=== PATIENT | female | born 1965 | race Caucasian/White ===

== ENCOUNTER 2020-03-06 06:36 | Inpatient (IN) ==
--- NOTE | 2020-02-29 10:20 | PAT Medication Instructions ---
Medication Instructions Date of Service February 29, 2020 Home Medications bupropion HCl [Wellbutrin SR] 200 mg PO QAM citalopram 20 mg PO HS dicyclomine 20 mg PO TID PRN fluticasone propionate [Flonase] 2 spray INTRANASAL DAILY PRN lisinopril 20 mg PO HS loratadine [Claritin] 10 mg PO QAM meloxicam 15 mg PO QAM multivitamin 1 tab PO QAM omeprazole [Prilosec] 20 mg PO Q2D Continue as directed omeprazole [Prilosec] 20 mg PO Q2D ASK your surgeon for instructions meloxicam 15 mg PO QAM DO NOT take the morning of surgery dicyclomine 20 mg PO TID PRN loratadine [Claritin] 10 mg PO QAM multivitamin 1 tab PO QAM Take morning of surgery With a small sip of water, OTHERWISE NOTHING TO EAT OR DRINK AFTER MIDNIGHT: bupropion HCl [Wellbutrin SR] 200 mg PO QAM fluticasone propionate [Flonase] 2 spray INTRANASAL DAILY PRN (if needed) Take evening before surgery citalopram 20 mg PO HS dicyclomine 20 mg PO TID PRN (if needed) fluticasone propionate [Flonase] 2 spray INTRANASAL DAILY PRN (if needed) lisinopril 20 mg PO HS Other Notes If you have any questions please call us at [phone] or [phone] or [phone] or [phone]
--- NOTE | 2020-03-01 10:57 | Anesthesiology Consultation ---
Date of Service March 01, 2020 Assessment & Plan (1) Encounter for pre-operative examination: Chart Review Chart Review: Acceptable Risk for Surgery (pending preop Covid testing ) and Patient seen in Pre Admission Testing - Check test AM DOS Per PAT appt on 03/01/20, pt resides and works in [facility]. No recent travel in past two weeks. No known Covid positive contacts or Covid related symptoms. Pt had Covid testing done 03/01/20 at surgeon's office- results pending. Educated on importance of self quarantining, social distancing and wearing mask in public both for the patient and household contacts. Teaching & Discussion Pre-Anesthesia Teaching/Discussion Notes: Instructed NPO after midnight before surgery,except medications with 15 cc of water. Medication instructions provided according to the [facility] guidelines. History Surgery Operation Date: 03/06/20 08:25 Proposed Procedures p Right Total Knee Arthroplasty - Fer Lindquist, Height/Weight Height: 5 ft 5 in Weight: 117.2 kg Allergies Allergy/AdvReac Type Severity Reaction Status Date / Time meperidine [From Demerol] AdvReac Unknown NAUSEA Verified 02/23/20 08:06 VOMITING Medications Home Medications Medication Instructions Recorded Confirmed Last Taken bupropion HCl [Wellbutrin SR] 200 mg PO QAM 02/23/20 02/23/20 Unknown citalopram 20 mg PO HS 02/23/20 02/23/20 Unknown dicyclomine 20 mg PO TID PRN 02/23/20 02/23/20 Unknown fluticasone propionate [Flonase] 2 spray INTRANASAL DAILY PRN 02/23/20 02/23/20 Unknown lisinopril 20 mg PO HS 02/23/20 02/23/20 Unknown loratadine [Claritin] 10 mg PO QAM 02/23/20 02/23/20 Unknown meloxicam 15 mg PO QAM 02/23/20 02/23/20 Unknown multivitamin 1 tab PO QAM 02/23/20 02/23/20 Unknown omeprazole [Prilosec] 20 mg PO Q2D 02/23/20 02/23/20 Unknown Past Medical History Medical History (Updated 03/01/20 @ 11:08 by Fallon Hayden PA-C) Anxiety Depression GERD (gastroesophageal reflux disease) Well controlled and stable Hypertension IBS (irritable bowel syndrome) Stable at this time Osteoarthritis Exercise / Class Metabolic Activity II 4-5 Yardwork/Stairs/Walk up hill (one flight of stairs- no chest pain or SOB) Past Surgical History Surgical History (Updated 02/23/20 @ 08:27 by Citlalli Huang RN) Exploratory laparotomy scar OVARIAN CYSTS H/O bilateral breast reduction surgery History of cholecystectomy History of colonoscopy History of esophagogastroduodenoscopy (EGD) History of tonsillectomy Hx of laparoscopy OVARIAN CYSTS Past Anesthesia History No Hx of Anesthesia Complications and No Family Hx of Anesthesia Complications History of PONV No Hx of PONV and No Hx of Motion Sickness Social History Smoking Status: Never smoker Do You Dip or Chew Tobacco: No Hx Alcohol Use: Yes Alcohol type: hard liquor alcohol intake frequency: holidays/special occasions only Hx Substance Use: No Review of Systems Patient denies chest pain, shortness of breath, dyspnea on exertion, cough, wheezing, palpitations. No hx of seizures, stroke, MT, apnea/snoring. No hx of blood clots or blood transfusions Physical Exam Vital Signs VITALS BP 143/81 P 79 TEMP 98.3 SP02 96% RESP 16 Constitutional no acute distress ENMT Mouth: no TMJ clicking Thyromental Distance: > or= 3.5 Finger Breadths (3.5) Mallampati Class: I Denies loose or missing teeth Neck neck extension not limited Respiratory normal respiratory effort; no respiratory distress Auscultation: lungs clear to auscultation bilaterally; no wheezes Cardiovascular Rate/Rhythm: regular rate and regular rhythm Heart Sounds: no murmur Vessels: no carotid bruit Musculoskeletal Spine: no pain with cervical ROM Neurologic moves all extremities Psychiatric Orientation: alert Testing Laboratory Results 03/01/20 11:20 PT 10.4 Seconds (9.0-12.0) 03/01/20 11:20 INR 1.0 (0.9-1.1) 03/01/20 11:20 APTT 28.7 Seconds (21.0-31.0) 03/01/20 11:20 Hemoglobin A1c 5.7 % (4.5-5.6) H 03/01/20 11:20 Urine Color Yellow 03/01/20 Unknown Urine Appearance Clear (Clear) 03/01/20 Unknown Urine pH 6.5 (4.5-7.5) 03/01/20 Unknown Ur Specific [place] 1.025 (1.000-1.030) 03/01/20 Unknown Urine Protein Negative (Negative) 03/01/20 Unknown Urine Glucose (UA) Negative (Negative) 03/01/20 Unknown Urine Ketones Negative (Negative) 03/01/20 Unknown Urine Nitrite Negative (Negative) 03/01/20 Unknown Ur Leukocyte Esterase Negative (Negative) 03/01/20 Unknown Blood Type B Positive 03/01/20 11:20 Antibody Screen NEGATIVE 03/01/20 11:20 02/18/20= SODIUM: 139 POTASSIUM: 4.1 CHLORIDE: 107 CO2: 28 BUN: 19 CREATININE: 0.74 GLUCOSE: 95 Electrocardiogram Date: 03/01/20 Findings: + NSR @ (74) Chest X-Ray Date: 03/01/20 Findings: + NAD
--- NOTE | 2020-03-01 11:45 | XRay Report ---
XR chest Pre-admission PA/Lat CLINICAL HISTORY: Preoperative chest COMPARISON STUDY: No previous studies for comparison. FINDINGS: The cardiac and mediastinal contours are normal. There is no evidence of focal pulmonary co nsolidation. There is no evidence of failure. No pleural effusions are visualized.[ IMPRESSION: No active disease in the chest. ACT 112: Negative or not required by law. Electronically signed by: Toño Villanueva M.D. 03/01/2020 11:44 AM
[2020-03-01 12:20] LABS: Appearance Urine Clear (Clear); Bilirubin Urine Negative (Negative); Blood Urine Negative (Negative); Color Urine Yellow; Glucose Urine UA Negative (Negative); Ketones Urine Negative (Negative); Leukocyte Esterase Urine Negative (Negative); Nitrite Urine Negative (Negative); Protein Urine Negative (Negative); Specific Gravity Urine 1.025 (1.000-1.030); Urobilinogen Urine Negative (Negative); pH Urine 6.5 (4.5-7.5)
[2020-03-01 12:20] LABS: Basophils # (auto) 0.02 K/uL (0-0.2); Basophils % (auto) 0.2 %; Eosinophils # (auto) 0.16 K/uL (0-0.5); Eosinophils % (auto) 1.7 %; Hematocrit (blood only) 43.2 % (37-47); Hemoglobin 14.3 g/dL (12.0-16.0); Immature Granulocytes # (auto) 0.03 K/uL (0.00-0.02); Immature Granulocytes % (auto) 0.3 %; Lymphocytes # (auto) 1.74 K/uL (1.2-3.4); Lymphocytes % (auto) 18.8 %; Mean Corpuscular Hemoglobin 30.6 pg (25-34); Mean Corpuscular Hgb Conc 33.1 g/dL (32-36); Mean Corpuscular Volume 92.3 fL (80-100); Mean Platelet Volume 11.2 fL (7.4-10.4); Monocytes % (auto) 6.5 %; Neutrophils # (auto) 6.71 K/uL (1.4-6.5); Neutrophils % (auto) 72.5 %; Platelet Count 260 K/uL (130-400); RDW Coefficient of Variation 14.1 % (11.5-14.5); RDW Standard Deviation 47.7 fL (36.4-46.3); Red Blood Count 4.68 M/uL (4.2-5.4); White Blood Count 9.26 K/uL (4.8-10.8)
[2020-03-01 12:28] LABS: Estimated Average Glucose 117 mg/dl; Hemoglobin A1C 5.7 % (4.5-5.6)
[2020-03-01 12:30] LABS: Partial Thromboplastin Time 28.7 Seconds (21.0-31.0); Prothrombin Time 10.4 Seconds (9.0-12.0)
--- NOTE | 2020-03-01 13:51 | Electrocardiogram Report ---
Test Reason : Blood Pressure : / mmHG Vent. Rate : 074 BPM Atrial Rate : 074 BPM P-R Int : 156 ms QRS Dur : 098 ms QT Int : 394 ms P-R-T Axes : 037 070 043 degrees QTc Int : 437 ms Normal sinus rhythm Normal ECG No previous ECGs available Confirmed by Omar Watkins ([id number]) on 03/01/2020 1:50:53 PM Referred By: Fer Lindquist Confirmed By:Omar Watkins
--- NOTE | 2020-03-04 12:13 | History & Physical Report ---
Date of Service March 06, 2020 Assessment & Plan (1) Degenerative joint disease of knee, right: I have indicated the patient for right total knee replacement. The risks, benefits and complications of surgery were explained to the patient which include but not limited to infection, acute blood loss, DVT/PE, injury to nerves, vessels, bone, soft tissue, arthrofibrosis, chronic pain, failure of the prosthesis, knee dislocation, leg length discrepancy, need for additional surgery, cardiac and pulmonary events and . The patient wished to proceed with surgery and informed consent was obtained at this time. We will plan for ASA BID post-operatively for DVT prophylaxis. Upon discharge the patient will be discharged home with home health services. Appropriate clearances by PCP were obtained. (2) Obesity: In additional to negative effects on overall health, the patient understands that due to their underlying obesity, they are at increased risk for developing the complications listed above. History of Present Illness Chief Complaint: Right knee pain/djd Primary Care Provider: Rich Joy DO The patient is a 54 year old female who presents with complaints of severe rig ht knee pain and DJD. The patient has failed outpatient conservative treatments to this point which included NSAIDs, bracing, IA corticosteroid and COELLO injections, PT and home exercise/walking program. The patient's pain and limited function have progressed to the point where they severely hinder their activities of daily living and they no longer tolerate exercise programs. They are requesting to proceed with total knee replacement surgery. Allergies Allergy/AdvReac Type Severity Reaction Status Date / Time meperidine [From Demerol] AdvReac Unknown NAUSEA Verified 03/06/20 06:56 VOMITING Home Medications Home Medications Medication Instructions Recorded Confirmed Type bupropion HCl [Wellbutrin SR] 200 mg PO QAM 02/23/20 03/06/20 History citalopram 20 mg PO HS 02/23/20 03/06/20 History dicyclomine 20 mg PO TID PRN 02/23/20 03/06/20 History fluticasone propionate [Flonase] 2 spray INTRANASAL DAILY PRN 02/23/20 03/06/20 History lisinopril 20 mg PO HS 02/23/20 03/06/20 History loratadine [Claritin] 10 mg PO QAM 02/23/20 03/06/20 History meloxicam 15 mg PO QAM 02/23/20 03/06/20 History multivitamin 1 tab PO QAM 02/23/20 03/06/20 History omeprazole [Prilosec] 20 mg PO Q2D 02/23/20 03/06/20 History Past Med/Surg History Medical History Anxiety Depression GERD (gastroesophageal reflux disease) Well controlled and stable Hypertension IBS (irritable bowel syndrome) Stable at this time Osteoarthritis Surgical History Exploratory laparotomy scar OVARIAN CYSTS H/O bilateral breast reduction surgery History of cholecystectomy History of colonoscopy History of esophagogastroduodenoscopy (EGD) History of tonsillectomy Hx of laparoscopy OVARIAN CYSTS Social History Smoking Status: Never smoker Second Hand Exposure: Yes (MOTHER SMOKED); Do You Dip or Chew Tobacco: No; Hx Alcohol Use: Yes Alcohol type: hard liquor Hx Substance Use: No Preferred Language: American Communication Ability: Effective Sports Physical Therapist Required: No Beliefs That Will Affect Care: None Current Living Situation: Spouse Other Information That Helps Us Care for You: No Feels Safe at Home: Yes Safety Concerns: Feels Safe At This Time Review of Systems Review of Systems: All systems reviewed & are unremarkable except as noted in HPI & below Constitutional: as per Subjective / HPI Physical Exam Physical Exam: RLE NVSI +EHL/FHL/TA/GS SILT grossly, +2 DP pulse, compartments soft NT, limited painful ROM 0-115 degrees of flexion, +crepitus. Constitutional: WD/WN, vitals as above Eyes: PERRL, conjunctivae normal, anicteric sclerae ENMT: external ear and nose normal, oropharynx normal Neck: trachea midline, no thyromegaly Respiratory: normal respiratory effort, lungs clear to auscultation Cardiovascular: RRR, no murmur, no edema Gastrointestinal (Abdomen): normal bowel sounds, soft, nontender, no hepatosplenomegaly Musculoskeletal: no cyanosis or clubbing, extremities motor strength 5/5 Skin: no rashes, warm and dry Neurologic: patellar DTR's 2+ bilat, sensation intact Psychiatric: A+Ox3, euthymic affect Lymphatic: no cervical or axillary lymphadenopathy Results & Data Results & Data ([facility]) Diagnostic Findings Multiple views of the knee demonstrates severe multi-compartmental DJD with complete loss of the medial joint space. +osteophytes, +sclerosis, +subchondral cysts. Pre Admission Testing Addendum Laboratory Results 03/01/20 11:20 PT 10.4 Seconds (9.0-12.0) 03/01/20 11:20 INR 1.0 (0.9-1.1) 03/01/20 11:20 APTT 28.7 Seconds (21.0-31.0) 03/01/20 11:20 Hemoglobin A1c 5.7 % (4.5-5.6) H 03/01/20 11:20 Urine Color Yellow 03/01/20 Unknown Urine Appearance Clear (Clear) 03/01/20 Unknown Urine pH 6.5 (4.5-7.5) 03/01/20 Unknown Ur Specific [place] 1.025 (1.000-1.030) 03/01/20 Unknown Urine Protein Negative (Negative) 03/01/20 Unknown Urine Glucose (UA) Negative (Negative) 03/01/20 Unknown Urine Ketones Negative (Negative) 03/01/20 Unknown Urine Nitrite Negative (Negative) 03/01/20 Unknown Ur Leukocyte Esterase Negative (Negative) 03/01/20 Unknown Blood Type B Positive 03/01/20 11:20 Antibody Screen NEGATIVE 03/01/20 11:20
[~2020-03-06 06:36] MED LIST: ACETAMINOPHEN 500 MG TAB PO SCH; BUPIVACAINE 0.5 % 5 MG/1 ML PF 10ML VIAL ONE; CEFAZOLIN 2000MG 2,000 MG/15 ML SYR IV SCH; CeleBREX 200 MG CAP PO SCH; EPINEPHrine INJ 1 MG/ML AMP ONE; FAMOTIDINE 20 MG TAB PO SCH; GABAPENTIN 900 MG DOSE PO SCH; LR 500ML BOLUS, THEN 15ML/HR IV SCH; METOCLOPRAMIDE HCL 10 MG TABLET PO SCH; ROPIVACAINE 0.5% 5 MG/ML 30 ML VIAL ONE; ROPIVACAINE 0.5% HCL/PF 150 MG, BUPIVACAINE 0.5% MPF 30 ML, EPINEPHrine 30MG/30ML (OR U... INSTIL SCH; TRANEXAMIC ACID 1,000 MG **IV Intra-op IV SCH; TRANEXAMIC ACID 1,000 MG **IV Pre-op IV SCH; dexAMETHasone 4 MG TAB PO SCH
[2020-03-06] MEDS ORDERED: fentaNYL citrate 100 MCG/2 ML VIAL ONE (07:27)
[2020-03-06] MEDS ORDERED: MIDAZOLAM HCL 1 MG/ML 2ML VIAL ONE ×2 (07:27→08:54)
--- NOTE | 2020-03-06 08:17 | History & Physical Bridge Note ---
Date of Service March 06, 2020 History & Physical Bridge Note I have examined the patient, reviewed the History & Physical and in the interval since the performance of the History & Physical I have noted the following changes of clinical significance: no changes noted
[2020-03-06] MEDS ORDERED: ORTHO JOINT ANESTHETIC ONE (08:19)
[2020-03-06] MEDS ORDERED: BACITRACIN INJ 50,000 UNIT VIAL ONE (08:19)
[2020-03-06] MEDS ORDERED: PROPOFOL IV EMULSION 10 MG/ML 20 ML VIAL IV ONE ×3 (09:41→09:42)
[2020-03-06] MEDS ORDERED: LIDOCAINE HCL 2% 2 ML VIAL/AMP(20MG/ML) INFIL ONE (09:41)
[2020-03-06] MEDS ORDERED: ONDANSETRON INJ 2 MG/ML 2 ML VIAL ONE (09:43)
--- NOTE | 2020-03-06 10:27 | Post Operative Brief Note ---
Immediate Post Op Note v1 Date of Surgery March 06, 2020 Pre & Post Diagnosis Operation Date: 03/06/20 08:30 Pre-Op Diagnosis: Unilateral Primary Osteroarthritis, Right Knee Post-Op Diagnosis: Unilateral Primary Osteroarthritis, Right Knee I identified the patient and participated in the time-out.: Yes Procedure Operation Date: 03/06/20 08:30 Actual Procedures p Right Total Knee Arthroplasty(Right) - Fer Lindquist DO Surgeon Fer Lindquist DO Government Employee Kj Mandel Estimated Blood Loss 55 Findings Consistent with Post-Op Diagnosis Fluids 1000 cc LR Specimens proximal tibia and distal femur bone fragments Anesthesia Type Spinal MAC Complications none Disposition Disposition: Recovery Room Overlapping Procedure I was present for: the critical portions of procedure. I was immediately available: during the entire case. Back up surgeon: was not required during procedure.
--- NOTE | 2020-03-06 10:31 | Operative Report ---
Post Operative Report Pre & Post Diagnosis Operation Date: 03/06/20 08:30 Pre-Op Diagnosis: Unilateral Primary Osteroarthritis, Right Knee Post-Op Diagnosis: Unilateral Primary Osteroarthritis, Right Knee I identified the patient and participated in the time-out.: Yes Procedure Operation Date: 03/06/20 08:30 Actual Procedures p Right Total Knee Arthroplasty(Right) - Fer Lindquist DO Surgeon Fer Lindquist DO Target Network Analyst Kj Mandel Estimated Blood Loss 55 Findings Consistent with Post-Op Diagnosis Fluids 1000 cc LR Specimens proximal tibia and distal femur bone fragments Anesthesia Type Spinal MAC Complications none Disposition Disposition: Recovery Room Indications The patient is a 54-year-old female presents with long history of severe right knee DJD and failed outpatient conservative treatments including NSAIDs, bracing, injections and home walking/exercise program. The patient's symptoms have progressed to the point where it has been difficult to perform normal activities of daily living. I have indicated the patient for a right total knee arthroplasty, the risks and benefits and complications of the procedure include but are not limited to infec tion bleeding damage to bone, nerves, vessels, surrounding soft tissue, blood clots, loss of function, leg length discrepancy, dislocation, failure of the components, need for additional surgery and . The patient wished to proceed with surgery at this time and informed consent was obtained. Appropriate clearances were obtained. Description of Procedure COMPONENTS USED: Pauline persona knee system: Femur size 7, Tibia size D ,tibial articulating surface 12 PS, Patella 32 mm Following induction of spinal anesthesia, a tourniquet was applied to the proximal aspect of the thigh and the patient's right leg was prepped and draped in the usual sterile manner. A timeout was performed, patient identified and site tien confirmed. Appropriate pre-operative IV antibiotics were given. The limb was exsanguinated with an Esmarch bandage and tourniquet was inflated to 300 mmHg. A longitudinal midline incision was made over the anterior knee. Subcutaneous tissue was sharply dissected down to fascia. Electrocautery was used for hemostasis. Next a parapatellar arthrotomy was performed. Patella was everted and the knee was flexed. A Keen retractor was used to expose the synovium above on the anterior aspect of the femur and removed down to bone. Next, the anterior fat pad was removed to aid in visualization. The medial face of the tibia was cleared of soft tissue first with a Bovie and a barron elevator. This tissue was retracted posteriorly using a blunt Hohmann. Next, the extra-medullary tibial cutting guide was placed to the anterior aspect of the tibia. The tibia resection level was set taking 2mm from the defective tibial condyle. Resection depth was once again confirmed with rishi wing. The medial and lateral collateral ligament was protected with two Hohmann retractors. The tibia guide was removed and proximal tibial bone fragment removed utilizing straight osteotome, electrocautery and Becky. Next, the distal femur intramedullary canal was accessed utilizing the step drill. The intramedullary distal femur cutting guide was placed into the canal and pinned into place. The distal femur was cut on the 5 degree setting. Next the cutting guide was removed and the femur was sized. Care was taken to ensure appropriate frozen food department manager all rotation and 3 degree holes were drilled. A size 7 4-in-1 cutting block was placed on the distal end of the femur and secured into place with two short headed screws. Two bent Hohmann retractors were placed to protect the medial and lateral collateral ligaments. The oscillating saw was used to cut anterior, posterior, anterior chamfer and posterior chamfer. The four and one cutting block was removed and bone fragments excised. Laminar casket trimmer was placed laterally and the ACL and PCL were removed followed by the medial meniscus and posterior medial osteophytes. Aquamantys was utilized for any posterior medial bleeders and Orthomix injected into the posterior medial capsule. A laminar casket trimmer was then placed in the medial compartment and the lateral meniscus and posterior osteophytes were removed. Aquamantys was utilized for any posterior lateral bleeders and Orthomix injected into the posterior lateral capsule. Next, drop matt and spacer block were placed with the leg in flexion and extension to assess alignment and flexion/extension gaps. Next, the proximal tibia was assessed and two bent Hohmans were placed medial and lateral to aid in visualization. The appropriate tibia size and rotation was selected and a size D tibial plate was pinned into place with appropriate rotation. Preparation of the tibia was completed utilizing the matching tibial drill and broach. I then turned my attention back to the distal femur in a trial femoral component was impacted into place. Appropriate femoral width was assessed and selected. Next the femur PS box cut guide was placed and cut made with the reciprocal saw and the PS box provisional placed. A trial size 12 PS tibia articular tray was placed and varus-valgus balance assessed in 0 degrees of extension and 30, 60 and 90 degrees of flexion. A final tibial articular surface size 12 PS was chosen. Assess was gained to the patella and caliper utilized to measure width. The patella reamer was utilized and remaining bone removed with oscillating saw. A size 32 mm patella button was selected and the patella pegs drilled. Trial patella button was placed and tracking was assessed. The knee was found to be well balanced, well aligned with excellent patella tracking. The trials were removed and final components were obtained and assembled. The knee was irrigated copiously with sterile saline solution mixed with bacitracin. Access to the proximal tibia was once again obtained utilizing to the Hohmans and the proximal tibia and distal femur were dried with lap sponges. The final components were cemented into place and all excess cement was removed. A trial tibial articular surface was placed while cemented hardened. Knee stability was once again assessed and the final component inserted. A Betadine soak was performed. After 3 minutes, the knee was once more irrigated with copious sterile saline solution with bacitracin. The knee was injected with the remaining Orthomix which includes a combination of Ropivicaine 0.5% 150mg, B upivicaine 0.5%/Epinephrine 1:200,000 30ml, Toradol 30mg, Dexamethasone 4mg, Ketamine 10mg, Clonidine 100mcg and NSS 30ml solution. The capsulotomy was closed with #1 Vicryl followed by subcutaneous closure with 2-0 Vicryl suture and a 3-0 V-lock suture. Skin closure was performed using Prineo dressing followed by Telfa, 4 x 4s and sonja wrap. Tourniquet was deflated at [ ] minutes. The patient tolerated the procedure well and was taken to the PACU in stable condition. Due to the complex nature of the procedure, the entire surgery was performed with the operational assistance of Kj Mandel PA-C. The assistant professor of chemistry, under direct supervision, was involved in the actual performance of all aspects of the surgical procedure including patient positioning, hemostasis, tissue retraction, instrument management and wound closure. I attest to the content of the Intraoperative Record and any orders documented therein. Any exceptions are noted below.
--- NOTE | 2020-03-06 11:26 | XRay Report ---
XR knee RT 1 or 2V routine CLINICAL HISTORY: Postoperative evaluation. COMPARISON: None FINDINGS: Alignment of the total right knee arthroplasty is anatomic. There is no periprosthetic fra cture or unexpected radiopaque foreign body. IMPRESSION: Expected findings following total right knee arthroplasty. ACT 112: Negative or not required by law. Electronically signed by: Macario Peralta M.D. 03/06/2020 11:24 AM
[2020-03-06] MEDS ORDERED: CEFAZOLIN 3000MG/72.5 ML BAG IV SCH (11:30)
[2020-03-06] MEDS ORDERED: ePHEDrine sulfate 50 MG/ML AMP IV PRN (11:48)
[2020-03-06] MEDS ORDERED: HYDROmorphone INJ 1 MG/ML SYRINGE IV PRN (11:48)
[2020-03-06] MEDS ORDERED: fentaNYL citrate 100 MCG/2 ML VIAL IV PRN (11:48)
[2020-03-06] MEDS ORDERED: ONDANSETRON INJ 2 MG/ML 2 ML VIAL IV PRN ×2 (11:48→12:07)
[2020-03-06] MEDS ORDERED: ATROPINE SULFATE 0.1 MG/ML 10ML SYR IV PRN (11:48)
--- NOTE | 2020-03-06 11:48 | Anesthesiology Progress Note ---
Date of Service March 06, 2020 Anesthesia Post Procedure Vital Signs Vital Signs: Temp Pulse Pulse Resp BP BP Pulse Ox 03/06/20 11:40 65 12 139/76 95 03/06/20 11:30 36.5 C 72 12 136/84 95 03/06/20 11:20 70 12 144/69 H 95 03/06/20 11:10 69 15 142/81 H 100 03/06/20 11:00 37.0 C 86 15 134/75 100 03/06/20 07:43 37.2 C 83 18 164/94 H 100 03/06/20 07:06 37 C 79 20 136/93 98 Transfer of Care Handoff Completed per policy Notes Mental Status: alert / awake / arousable and participated in evaluation Patient Amnestic to Procedure: Yes Nausea / Vomiting: adequately controlled Pain: adequately controlled Airway Patency, RR, SpO2: stable & adequate BP & HR: stable & adequate Hydration State: stable & adequate Neuraxial Anesthesia: was administered and sensory block is resolving Anesthetic Complications: no major complications apparent and Pt Satisfied with anesthetic care
[2020-03-06] MEDS ORDERED: MAGNESIUM HYDROXIDE SUSP 30 ML UDC PO PRN (12:07)
[2020-03-06] MEDS ORDERED: METOCLOPRAMIDE HCL INJ 5 MG/ML 2 ML VIAL IV PRN (12:07)
[2020-03-06] MEDS ORDERED: HYDROmorphone INJ 0.5 MG/0.5 ML SYR IV PRN (12:07)
[2020-03-06] MEDS ORDERED: bisacodyL 10 MG SUPP PR PRN (12:07)
[2020-03-06] MEDS ORDERED: NALOXONE HCL 0.4 MG/1 ML VIAL/CARP IV PRN (12:07)
[2020-03-06] MEDS: KETOROLAC TROMETHAMINE 15 MG/ML VIAL IV SCH ×2 (12:56→18:26)
[2020-03-06] MEDS: SODIUM CHLORIDE 0.9% 1000ML 1,000 ML IV SCH ×2 (12:56→21:36)
[2020-03-06] MEDS: ACETAMINOPHEN 500 MG TAB PO SCH ×2 (14:19→21:35)
[2020-03-06] MEDS: CEFAZOLIN 3000MG 72.5 ML IV SCH (16:46)
--- NOTE | 2020-03-06 19:54 | Orthopedic Progress Note ---
Date of Service March 06, 2020 Assessment & Plan (1) Degenerative joint disease of knee, right: Status post right total knee arthroplasty -Ancef x24 -DVT prophylaxis: SCDs, teds, ASA twice daily Weight-bear as tolerates right lower extremity PT/OT Postoperative x-ray demonstrates a well aligned well fixed prosthesis without evidence of fracture or dislocation A.m. labs DC planning (2) Obesity: In additional to negative effects on overall health, the patient understands that due to their underlying obesity, they are at increased risk for developing the complications listed above. Admission and Anticipated Discharge Date Admission Date: March 06, 2020 Subjective Post Operative Progress Note Patient seen sitting up in bed, comfortable, denies complaints, pain well controlled, no acute issues. Review of Systems Review of Systems: All systems reviewed & are unremarkable except as noted in HPI & below Constitutional: as per Subjective / HPI Physical Exam Physical Exam: RLE NVSI +EHL/FHL/TA/GS SILT grossly, +2 DP pulse, compartments soft NT, dressing cdi. Constitutional: WD/WN, vitals as above Results & Data ([facility]) Vital Signs (Past 12 Hours) Vital Signs Temp Pulse Pulse Resp BP Pulse Ox 03/06/20 15:42 36.8 C 74 18 119/76 94 03/06/20 14:09 36.8 C 81 18 139/62 94 03/06/20 12:55 36.6 C 71 20 142/74 H 95 03/06/20 12:22 36.6 C 67 20 156/76 H 94 03/06/20 11:50 36.6 C 70 22 142/75 H 97 03/06/20 11:40 65 12 139/76 95 03/06/20 11:30 36.5 C 72 12 136/84 95 03/06/20 11:20 70 12 144/69 H 95 03/06/20 11:10 69 15 142/81 H 100 03/06/20 11:00 37.0 C 86 15 134/75 100
[2020-03-06] MEDS: DOCUSATE SODIUM 100 MG CAP PO SCH (20:26)
[2020-03-06] MEDS ORDERED: lisinopriL 20 MG TAB PO SCH (21:00)
[2020-03-06] MEDS ORDERED: SENNA 8.6 MG TAB PO SCH (21:00)
[2020-03-06] MEDS ORDERED: CITALOPRAM 20 MG TAB PO SCH (21:00)
[2020-03-07] MEDS: KETOROLAC TROMETHAMINE 15 MG/ML VIAL IV SCH ×2 (00:20→06:23)
[2020-03-07] MEDS: CEFAZOLIN 3000MG 72.5 ML IV SCH (00:20)
[2020-03-07] MEDS: OXYCODONE HCL IR 5 MG TAB (IMMEDIATE RELEASE) PO PRN ×3 (00:28→15:18)
[2020-03-07 06:07] LABS: Hematocrit (blood only) 35.4 % (37-47); Hemoglobin 11.6 g/dL (12.0-16.0); Mean Corpuscular Hemoglobin 30.5 pg (25-34); Mean Corpuscular Hgb Conc 32.8 g/dL (32-36); Mean Corpuscular Volume 93.2 fL (80-100); Platelet Count 231 K/uL (130-400); RDW Coefficient of Variation 13.8 % (11.5-14.5); RDW Standard Deviation 47.2 fL (36.4-46.3); White Blood Count 15.62 K/uL (4.8-10.8)
[2020-03-07] MEDS: ACETAMINOPHEN 500 MG TAB PO SCH ×2 (06:23→13:17)
[2020-03-07 06:40] LABS: BUN Creatinine Ratio 28.4 (10-20); Calcium 8.4 mg/dl (8.5-10.1); Creatinine Clr Calc Pharmacy 100.1 ml/min; Est GFR (Non-African American) 81.1; Potassium 4.4 mmol/L (3.5-5.1)
[2020-03-07] MEDS: DOCUSATE SODIUM 100 MG CAP PO SCH (07:34)
--- NOTE | 2020-03-07 08:28 | Orthopedic Progress Note ---
Date of Service March 07, 2020 Assessment & Plan (1) Degenerative joint disease of knee, right: Status post right total knee arthroplasty POD#1 -Ancef x24 -DVT prophylaxis: SCDs, teds, ASA twice daily Weight-bear as tolerates right lower extremity PT/OT Postoperative x-ray demonstrates a well aligned well fixed prosthesis without evidence of fracture or dislocation A.m. labs - as above, hgb 11.6 DC planning - home with HH (2) Obesity: In additional to negative effects on overall health, the patient understands that due to their underlying obesity, they are at increased risk for developing the complications listed above. Admission and Anticipated Discharge Date Admission Date: March 06, 2020 Subjective Post Operative Progress Note Patient seen sitting up in bed, comfortable, denies complaints, pain well controlled, no acute issues. Denies F/C/N/V/SOB/CP. Review of Systems Review of Systems: All systems reviewed & are unremarkable except as noted in HPI & below Constitutional: as per Subjective / HPI Physical Exam Physical Exam: RLE NVSI +EHL/FHL/TA/GS SILT grossly, +2 DP pulse, compartments soft NT, dressing cdi. Constitutional: WD/WN, vitals as above Results & Data ([facility]) Vital Signs (Past 12 Hours) Vital Signs Temp Pulse Pulse Resp BP Pulse Ox 03/07/20 07:09 36.8 C 64 16 149/81 H 97 03/07/20 02:59 36.7 C 67 14 111/65 98 03/07/20 00:05 36.8 C 68 15 125/74 96 Laboratory Results 03/07/20 03/07/20 03/06/20 Range/Units 05:32 05:32 07:36 WBC 15.62 H (4.8-10.8) K/uL RBC 3.80 L (4.2-5.4) M/uL Hgb 11.6 L (12.0-16.0) g/dL Hct 35.4 L (37-47) % MCV 93.2 (80-100) fL MCH 30.5 (25-34) pg MCHC 32.8 (32-36) g/dL RDW Std Deviation 47.2 H (36.4-46.3) fL RDW Coeff of [place] 13.8 (11.5-14.5) % Plt Count 231 (130-400) K/uL MPV 11.0 H (7.4-10.4) fL Sodium 141 (136-145) mmol/L Potassium 4.4 (3.5-5.1) mmol/L Chloride 110 H (98-107) mmol/L Carbon Dioxide 25 (21-32) mmol/L Anion Gap 6.0 (3-11) BUN 23 H (7-18) mg/dl Creatinine 0.82 (0.6-1.2) mg/dl Est Cr Clr Drug Dosing 100.1 ml/min Est GFR ( Amer) 94.0 Est GFR (Non-Af Amer) 81.1 BUN/Creatinine Ratio 28.4 H (10-20) Glucose 102 H (70-99) mg/dl Calcium 8.4 L (8.5-10.1) mg/dl POC Ur Test NEG (NEG)
[2020-03-07] MEDS ORDERED: PANTOprazole 40 MG TAB PO SCH (09:00)
[2020-03-07] MEDS ORDERED: ASPIRIN 325 MG ECTAB PO SCH (09:00)
[2020-03-07] MEDS ORDERED: BuPROPion SR 100 MG TABCR PO SCH (09:00)
[2020-03-07] MEDS ORDERED: MULTIVITAMIN TAB PO SCH (09:00)
[2020-03-07] MEDS ORDERED: CeleBREX 200 MG CAP PO SCH (12:00)
--- NOTE | 2020-03-07 19:45 | Discharge Summary ---
Date of Service March 07, 2020 Admission HPI Per Admitting Provider The patient is a 54 year old female who presents with complaints of severe right knee pain and DJD. The patient has failed outpatient conservative treatments to this point which included NSAIDs, bracing, IA corticosteroid and COELLO injections, PT and home exercise/walking program. The patient's pain and limited function have progressed to the point where they severely hinder their activities of daily living and they no longer tolerate exercise programs. They are requesting to proceed with total knee replacement surgery. Principal Diagnosis Right total knee replacement -Right knee DJD Discharge Exam RLE NVSI +EHL/FHL/TA/GS SILT grossly, +2 DP pulse, compartments soft NT, dressing cdi. Constitutional WD/WN, vitals as above Discharge Data Allergies Allergy/AdvReac Type Severity Reaction Status Date / Time meperidine [From Demerol] AdvReac Unknown NAUSEA Verified 03/06/20 06:56 VOMITING Consultations 03/06/20 12:07 Consult Case Management - Discharge Planning Routine Procedures Performed Operation Date: 03/06/20 08:30 Actual Procedures p Right Total Knee Arthroplasty(Right) - Fer Lindquist DO Ordered Studies 03/06/20 05:00 US - OR guided needle placemen Routine 03/06/20 07:58 US - OR guided needle placemen Routine Hospital Course (1) Degenerative joint disease of knee, right: The patient is a 54 -year-old female who presents with long standing history of severe right knee DJD and failed outpatient conservative treatments. The patient's symptoms have progressed to the point where it has been difficult to perform even normal activities of daily living. I indicated the patient for a right total knee arthroplasty, the risks, benefits and complications of the procedure include but not limited to infection, bleeding, damage to bone, nerves, vessels, surrounding soft tissue, may develop blood clots, loss of function, leg length discrepancy, dislocation, failure of the components, loosening of the components, the need for additional surgery and . The patient wished to proceed with surgery at this time and informed consent was obtained. Hospital Course: On 03/06/20 the patient was taken to the operating room, adequate anesthesia administered and underwent a right total knee arthroplasty. The patient tolerated the procedure well and was taken to the PACU in stable condition. Post-operatively the patient was started on a DVT ppx medication and given appropriate IV antibiotics. Consults were placed to physical therapy, occupational therapy and case management. On POD#1, the patient did well overnight and their pain was well controlled. Labs were drawn and the Hgb was 11.6. The patient progressed well with PT. Dressings were changed at this time and the incision was clean, dry and intact. The patients hospital stay was relatively uneventful and they were deemed stable by the orthopedic team and consultants to be discharged home with on 03/07/20. Discharge Instructions: Upon discharge the patient may weight bear as tolerates through their operative extremity. They were instructed to keep the incision clean and dry at all times. The patient may shower but should not submerge the incision, avoid bathing, pools and hot tubes. The patient was given a script for pain medication and should take as instructed. The patient was given a script for DVT ppx 325mg ASA BID and should take as directed. The patient was instructed to not drive or travel for long distances until cleared to do so. If the patient develops any symptoms of fevers, chills, nausea, vomiting, increased redness, swelling, pain or drainage from the surgical site, they should notify the office and/or proceed to the nearest emergency room. The patient should follow up in 10-14 days after surgery for their routine post-operative follow-up appointment and should call the office to confirm the date and time. Status post right total knee arthroplasty POD#1 -Ancef x24 -DVT prophylaxis: SCDs, teds, ASA twice daily Weight-bear as tolerates right lower extremity PT/OT Postoperative x-ray demonstrates a well aligned well fixed prosthesis without e vidence of fracture or dislocation A.m. labs - as above, hgb 11.6 DC planning - home with (2) Obesity: In additional to negative effects on overall health, the patient understands that due to their underlying obesity, they are at increased risk for developing the complications listed above. Total Time Total Time Spent Total Time Spent (In Minutes): 30 Discharge Plan Discharge Items Patient Disposition: Home - Home Health Services Reason For Visit: Unilateral Primary Osteroarthritis, Right Knee Discharge Diagnosis: Right total knee replacement -Right knee DJD Condition on Discharge: Good Activity: Per Instructions section Lifting: Wait until after follow-up appointment Bathing: Keep incision dry Sexual Activity: Wait until after follow-up appointment Exercise/Sports: Wait until after follow-up appointment Driving/Machine Use: No driving Weightbearing: Full weightbearing Non-emergency contact: Primary Care Provider and Surgeon Call non-emergency contact if: you have any medication questions, your symptoms worsen, your pain is not controlled, your pain is worsening, your pain is unusual for you, your pain is concerning for you, you have a fever, your temperature is above 101, your wound has increased redness, your wound has increased drainage and your wound pain has increased Follow-up/Referrals: Rich Joy, [Primary Care Provider] - Diet: Regular Addtl Attending Provider Instructions: ACTIVITY RECOMMENDATIONS: SELF CARE INSTRUCTIONS AFTER TOTAL KNEE REPLACEMENT A. You may need to continue a physical therapy program after discharge from the hospital. There are several options available to you. Your doctor will assist you in selecting the best one for you. 1. An out-patient facility 2 to 3 times a week for therapy or home therapy. 2. Continue working on all exercises taught to you in the hospital. Your goals should be to increase bending of your knee to 90 degrees and beyond and to fully straighten your knee. B. You may progress at your own pace from walking with a walker or crutches to a cane; then to no assistive devices. C. Make walking a part of your daily routine. Be up as much as comfortable with rest periods throughout the day. Rest with leg elevation is very important. Use the ice wrap frequently for the first 3-4 weeks. D. There are no restrictions on activities. You may ride in a car, shop, participate in foreman shipping department and all social activities. E. Wear the long elastic stockings (MARY hose) 20 hours a day for 2 weeks after surgery. They can be removed several times a day for laundering and for a bath. F. You may shower, no tub baths until cleared by your doctor. SPECIAL CARE INSTRUCTIONS: VERY IMPORTANT TO READ AND REVIEW A. There are a few signs you need to watch for after you are home. Call [facility] if you notice any of the followin. Increased severe knee pain. Some pain is expected especially when you exercise. 2. Increased swelling in your leg or knee; pain or swelling of the calf muscle in either lower leg. 3. Any fluid drainage from the incision. 4. Shortness of breath or chest pain. B. [facility] at if you have any concerns or questions about your operation or recovery. The doctor or his nurse will return your call promptly. C. You must take antibiotics before dental work, bladder, bowel or other surgery. Your doctor will provide you with a permanent care to carry describing this precaution. IMPORTANT: * REMEMBER TO TAKE ASPIRIN, 81 MG, TWICE DAILY FOR 4 WEEKS UNLESS OTHERWISE DIRECTED. THIS IS YOUR BLOOD THINNER. * HIGH RISK PATIENTS MAY BE PRESCRIBED A STRONGER BLOOD THINNER. THIS WILL BE PROVIDED AT DISCHARGE. * CALL IF INCREASED PAIN, REDNESS, DRAINAGE OR FEVER GREATER THAT 101. * WEAR MARY HOSE 20 HOURS PER DAY FOR 2 WEEKS. * YOU MAY HAVE A LARGE BAND-AID LIKE DRESSING (SILVERON). THIS WILL REMAIN ON YOUR INCISION FOR 7 DAYS, THEN CAN BE REMOVED. IF INCISION IS LEAKING THROUGH DRESSING, CALL THE OFFICE . FOLLOW UP VISIT: If appointment is not already scheduled: Please call [facility] to make a follow-up appointment for 2 weeks after your surgery at . Pending Studies at Discharge: No Stand-Alone Forms: My [facility] [employer], Smoking Cessation Medications and DC Order Prescriptions: New celecoxib [Celebrex] 200 mg Capsule 200 mg PO BID PRN (Reason: pain/inflammation) Qty: 28 RF: 0 acetaminophen 500 mg Tablet 1,000 mg PO Q8 PRN (Reason: pain/fevers) Qty: 90 RF: 0 aspirin [Ecotrin] 325 mg Tablet,Delayed Release (Dr/Ec) 325 mg PO BID Qty: 56 RF: 0 oxycodone 5 mg Tablet 5 mg PO Q6H MDD 4 PRN (Reason: pain) Qty: 30 RF: 0 sennosides [Senokot] 8.6 mg Tablet 17.2 mg PO HS PRN (Reason: constipation) Qty: 28 RF: 0 Continued multivitamin Tablet 1 tab PO QAM RF: 0 lisinopril 20 mg Tablet 20 mg PO HS RF: 0 citalopram 20 mg Tablet 20 mg PO HS RF: 0 dicyclomine 20 mg Tablet 20 mg PO TID PRN (Reason: Pain) RF: 0 omeprazole 20 mg Capsule,Delayed Release(Dr/Ec) 20 mg PO Q2D RF: 0 loratadine [Claritin] 10 mg Tablet 10 mg PO QAM RF: 0 bupropion HCl [Wellbutrin SR] 200 mg Tablet Sustained-Release 12 Hr 200 mg PO QAM RF: 0 fluticasone propionate 50 mcg/actuation [place],Suspension 2 spray INTRANASAL DAILY PRN (Reason: Congestion) RF: 0 Discontinued meloxicam 15 mg Tablet 15 mg PO QAM RF: 0 Discharge Orders: Discharge Order (Routine); Ordered 03/07/20 Ordered By: Fer Lindquist Admission Data Admit Date/Time: 03/06/20 11:06 Attending Provider: Fer Lindquist Admit Provider: Fer Lindquist Primary Care Provider: Rich Joy Other Providers: [facility],Home Health Other Interventions: Discharge Summary Assessment (RN) Last Done: 03/07/20 16:50
== END 2020-03-07 17:30 | disposition home health service (06) | DRG 470 ==
LOC: ASU 06:36 → 3E 11:06